=== PATIENT | male | born 1970 | race Caucasian/White ===

== ENCOUNTER 2020-05-09 06:35 | Day surgery (SDC) | payer OTHER ==
[2020-05-07 10:10] LABS: HEMATOCRIT 43.5 % (42.0-54.0); HEMOGLOBIN 14.3 g/dL (13.5-17.5); MCH 29.6 pg (26.0-34.0); MCHC 32.9 g/dL (31.0-37.0); MCV 90.1 fL (80.0-100.0); MEAN PLATELET VOLUME 10.6 fL (7.4-10.4); RBC 4.83 10x6/uL (4.20-6.10); RDW 12.9 % (11.5-14.5); WBC 5.9 10x3/uL (4.8-10.8)
[2020-05-07 10:27] LABS: ANION GAP 9.5 mmol/L (8-16); CALCIUM 8.8 mg/dL (8.5-10.1); CARBON DIOXIDE 30.3 mmol/L (21.0-32.0); CREATININE - SERUM 1.2 mg/dL (0.6-1.3); POTASSIUM - SERUM 3.8 mmol/L (3.5-5.1)
[2020-05-09] VITALS (19 sets, daily range): BP systolic 98–119; BP diastolic 58–83; Ht 162.6 cm; Wt 79.6 kg
[~2020-05-09] VITALS: Ht 162.6 cm; Wt 79.6 kg
[~2020-05-09 06:35] MED LIST: GLUCOPHAGE500 MG PO; IBUPROFEN800 MG PO; LISINOPRIL5 MG PO; VITAMIN B-COMPLEX PO
--- NOTE | 2020-05-09 12:15 | NUR ---
PT ARRIVED TO UNIT AT THIS TIME FROM OR. NO ACUTE DISTRESS NOTED. VSS. PT DENIES ANY NEEDS. INCISION SITE CDI TO RT LOWER NECK. WILL CONTINUE PLAN OF CARE.
--- NOTE | 2020-05-09 13:48 | NUR ---
PT C/O INCISIONAL SITE PAIN REQUESTED PRN MED FOR PAIN. ADMIN ORDERED PRN NORCO. PT UP IN BED AWAKE. ALERT AND ORIENTED. NO ACUTE DISTRESS NOTED. NEURO CHECKS WDL. WILL CONTINUE PLAN OF CARE.
--- NOTE | 2020-05-09 13:53 | NUR ---
SPOKE WITH PTS AT THIS TIME. UPDATES PROVIDED. PTS STATES SHE WILL BE BY LATER TO SEE PT. VSS. WILL CONTINUE PLAN OF CARE.
--- NOTE | 2020-05-09 14:09 | NUR ---
NOTED ORDER FOR PT TO HAVE SOFT CERVICAL COLLAR WHEN OUT OF BED. CALLED [employer] AND SPOKE WITH MARLO WHO STATED SHE WILL BRING ONE BY SHORTLY.
--- NOTE | 2020-05-09 15:11 | NUR ---
SOFT CERVICAL COLLAR RECIEVED FROM [employer], PLACED IN PT ROOM. TEACHING PROVIDED ON HOW AND WHEN TO USE IT. PT VERBALIZES UNDERSTANDING. VSS. WILL CONTINUE PLAN OF CARE.
--- NOTE | 2020-05-09 16:07 | NUR ---
PTS AT BEDSIDE AT THIS TIME. NO ACUTE DISTRESS NOTED. VSS. WILL CONTINUE PLAN OF CARE.
--- NOTE | 2020-05-09 18:06 | NUR ---
LYING IN BED VISITING WITH AT THIS TIME. VSS. NO ACUTE DISTRESS NOTED. NEURO CHECKS WDL. WILL CONTINUE PLAN OF CARE.
--- NOTE | 2020-05-09 19:00 | NUR ---
REPORT RECEIVED. RECEIVED PATIENT IN BED. AWAKE ALERT AND ORIENTED X 4. SPEECH CLEAR. ASSESSMENT COMPLETED PER FLOW SHEET WITH NO ACUTE DISTRESS OBSERVED. MONITORS CONNECTED TO PATIENT WITH ALARMS SET. VSS. CALL LIGHT IN REACH AND ABLE TO UTILIZE TO MAKE NEEDS KNOWN.
--- NOTE | 2020-05-09 21:00 | NUR ---
AWAKE AND ALERT. VSS. AT BEDSIDE. CALL LIGHT IN REACH
--- NOTE | 2020-05-09 23:00 | NUR ---
REASSESSMENT COMPLETED PER FLOW SHEET WITH NO ACUTE DISTRESS OBSERVED. VSS. CALL LIGHT IN REACH. WILL CONTINUE CURRENT POC
[2020-05-10] VITALS (9 sets, daily range): BP systolic 95–119; BP diastolic 55–72
--- NOTE | 2020-05-10 03:00 | NUR ---
REASSESSMENT COMPLETED PER FLOW SHEET WITH NO ACUTE DISTRESS OBSERVED. VSS. CALL LIGHT IN REACH
--- NOTE | 2020-05-10 05:00 | NUR ---
Awake and alert. vss. call light in reach
[2020-05-10] MEDS ORDERED: HYDROCODON-ACE1 EA10 PO (08:03)
--- NOTE | 2020-05-10 08:15 | NUR ---
DR. BAUTISTA HERE. DISCHARGE ORDERS REC'D.
--- NOTE | 2020-05-10 08:45 | NUR ---
[facility]is[facility].
--- NOTE | 2020-05-14 13:10 | OP ---
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 PROCEDURE: The C6-C7 arthroplasty with Mobi-C artificial cervical disk. SURGEON: Arlyn Bautista MD NURSE HEAD: Jules Berry APRN DESCRIPTION AND TECHNIQUE: After induction of general endotracheal anesthesia, the patient was positioned supine on operating table with a neutral cervical spine position. After sterile prep and drape, a transverse skin incision was carried out at the C6-C7 interspace with a #15 blade. The platysma was divided with a #15 blade as well. Using blunt and sharp dissection with Metzenbaum scissors, I proceeded in avascular plane medial to the carotid sheath. The C6-C7 interspace was identified with fluoroscopic x-ray and a spinal needle. The longus colli muscles were elevated from bodies of C6 and C7. Cusick distracting pins were placed by the C6 and C7. The disk space was incised with a #11 blade. The cartilaginous endplates were removed with a combination of pituitary rongeurs and curettes. Posteriorly, osteophytes were drilled away under microscopic illumination with the Midas-Peng drill. The posterior longitudinal ligament was removed with Cloward rongeurs. During this phase, Jules Berry was using retractors to expose the wound and help with adjusting the mechanics of the retractor as well as hemostasis. Next, an appropriately sized C6 and 67 Mobi-C artificial disk was placed in the disk space under distraction. Good position of the hardware was confirmed with fluoroscopic x-ray. The disk space artificial disk sports coordinator was removed and the self-retaining retractor was removed and Jules Berry held retraction while hemostasis was obtained. Good position hardware on AP and lateral fluoroscopic films confirmed good position of the artificial disk. The platysma was closed with interrupted 3-0 Vicryl suture. The subdermal layer was closed with interrupted 4-0 Vicryl suture. The skin was closed with Steri-Strips and benzoin. A sterile dressing was applied to the wound. The patient was awakened in good condition and taken to recovery. All counts were reported as correct. Estimated blood loss was minimal. TRANSINT:[id number] Voice Confirmation ID: [id number] DOCUMENT ID: [id number] OPERATIVE REPORT [id number] RENATA NGUYEN, ARLYN CLINE at 1310 CC: [id number] DICTATION DATE: 05/14/20 1059 MANAGER SEMICONDUCTOR: 05/14/20 1157 [facility] 05/10/[address] [address]
== END 2020-05-10 13:08 | disposition home or self-care (01) ==
LOC: D.OPS 06:35 → D.PAN 09:15 → D.OPS 09:20 → D.PAN 09:20 → D.CVICU 12:00 → D.OPS 05-10 13:08
PROVIDERS: Anesthesiology; ATTEND Neurological Surgery
DX: M50.20 Other cervical disc displacement, unspecified cervical region (principal); M54.12 Radiculopathy, cervical region; E10.9 Type 1 diabetes mellitus without complications; E78.5 Hyperlipidemia, unspecified; I10 Essential (primary) hypertension; Z79.84 Long term (current) use of oral hypoglycemic drugs

== ENCOUNTER → 2020-06-25 12:15 | Outpatient (CLI) | payer OTHER ==
[2020-05-09 13:24] VITALS: BMI 30.1
[~2020-06-25 12:15] MED LIST changes: +HYDROCODON-ACE1 EA10 PO
--- NOTE | 2020-06-27 14:25 | EC ---
PATIENT:RENATA NGUYEN DATE OF SERVICE: 06/25/20 SEX: M MEDICAL RECORD: [id number] DATE OF : 74 [facility] AGE OF PATIENT: 49 ADMISSION DATE: 06/25/20 REFERRING PHYSICIAN: INTERPRETING PHYSICIAN: VIRIDIANA FRAGA MD ECHOCARDIOGRAM REPORT ECHO CHARGES 4 ECHO COMPLETE Date: 06/25/20 CLINICAL DIAGNOSIS: HEART MURMUR/ HX OF MVP/MITRAL REGURG ECHOCARDIOGRAPHIC MEASUREMENTS (adult normal given) AC root (d.<3.7cm) 4.4 cm LV Septum d (<1.2 cm> 1.3 cm Valve Excursion 1.5 cm LV Septum (systole) 1.7 cm Left Atria (s.<4.0cm> 4.5 cm LVPW d(<1.2cm) 1.5 cm RV (d.<2.3cm) 3.2 cm LVPW (sytole) 1.8 cm LV diastole(<5.6CM) 4.8 cm MV E-F(>70mm/sec) cm LV systole 2.4 cm LVOT Diameter 2.2 cm MV exc.(>10mm) 1.9 cm Est.ejection fraction (50-75%) % DOPPLER: LVIT cm/sec A 79.0 cm/sec E 104.0 cm/sec LA cm/sec RVSP 31 mmHg LVOT 84 cm/sec AOP1/2T m/s Asc. Ao 170 cm/sec RVOT 72 cm/sec RA cm/sec PA 111 cm/sec AV Gradient Peak 11.54mmHg AV Mean 7.26 mmHg AV Area 3.6 cm MV Gradient Peak 2.81 mmHg MV Mean 1.68 mmHg MV Area cm COMMENTS: Remote Sensing Technician: 2 LUDWIN WALDRON Char Filter Tank Tender Head: 3 Dr. Mir TAPE# PACS Pericardial Effusion N DATE OF SERVICE: Adequate 2D, color flow imaging, spectral Doppler, and M-Mode. LVH is present. LV internal dimension is normal. Wall motion is normal. EF is greater than or equal to 55%. Aortic valve is tricuspid. No evidence of stenosis by Doppler interrogation. Left atrium is dilated at 4.5 cm. Mitral valve shows prolapse of the anterior leaflet and moderate to severe probably close to severe MR. Right-sided chamber is grossly normal. Mild TR. ECHOCARDIOGRAM REPORT [id number] RENATA NGUYEN TRANSINT:[id number] Voice Confirmation ID: [id number] DOCUMENT ID: [id number] VIRIDIANA FRAGA MD at 1425 CC: [id number] DICTATION DATE: 06/26/20 1144 FOOD SCIENCE TECHNICIAN: 06/26/201950 DEP CLI 06/25/20 [place] [id number] [place] [id number]
== END | disposition home or self-care (01) ==
LOC: D.HCCECHO 12:15
PROVIDERS: ATTEND Internal Medicine Interventional Cardiology
DX: R01.1 Cardiac murmur, unspecified (principal)